=== PATIENT | female | born 1990 | race Two or more races ===

== ENCOUNTER 2018-06-17 01:26 | Emergency (ER) | payer BC, MEDICAID ==
[~2018-06-17] VITALS: Ht 152.4 cm; Wt 72.1 kg
[2018-06-17 01:35] VITALS: BP 144/85
[2018-06-17] MEDS ORDERED: KETOROLAC TROMETH 60MG/2ML VIAL IM ONE (04:30)
== END 2018-06-17 05:24 | disposition home or self-care (01) ==
LOC: ER 01:28
DX: S93.402A Sprain of unspecified ligament of left ankle, initial encounter (principal); F17.210 Nicotine dependence, cigarettes, uncomplicated; F12.10 Cannabis abuse, uncomplicated; Z88.0 Allergy status to penicillin; W19.XXXA Unspecified fall, initial encounter; Y93.89 Activity, other specified; Y92.89 Other specified places as the place of occurrence of the external cause; Y99.8 Other external cause status
CPT/HCPCS: 73610; 73630; 96372; 99284; J1885

== ENCOUNTER 2018-06-30 23:34 | Emergency (ER) | payer MEDICAID ==
[~2018-06-30] VITALS: Ht 152.4 cm; Wt 68.0 kg
[2018-07-01 00:07] VITALS: BP 147/75
[2018-07-01] MEDS ORDERED: ACETAMINOPHEN 500 MG TAB PO ONE (03:15)
[2018-07-01] MEDS ORDERED: IPRATROPIUM BROM 0.5 MG/2.5ML INH SOL NEB ONE (03:15)
[2018-07-01] MEDS ORDERED: ALBUTEROL SULF 2.5 MG/0.5ML(0.5%) NEB SOLN NEB ONE (03:15)
== END 2018-07-01 04:20 | disposition home or self-care (01) ==
LOC: ER 23:35
DX: J20.9 Acute bronchitis, unspecified (principal); F17.210 Nicotine dependence, cigarettes, uncomplicated; F12.10 Cannabis abuse, uncomplicated; J02.9 Acute pharyngitis, unspecified; R04.0 Epistaxis; R06.2 Wheezing
CPT/HCPCS: 71046; 94640; 99284; J7611; J7644